=== PATIENT | male | born 1970 | race Caucasian/White ===

== ENCOUNTER → 2017-01-11 | Outpatient (CLI) | payer BC, OTHER ==
[2017-01-11 08:42] LABS: CHLORIDE,CL 107 mmol/L (98-110); SODIUM,NA 144 mmol/L (136-146)
== END ==
LOC: MW.CHFP 07:35
PROVIDERS: ATTEND Student in an Organized Health Care Education/Training Program
DX: E11.65 Type 2 diabetes mellitus with hyperglycemia (principal); E78.00 Pure hypercholesterolemia, unspecified; E78.5 Hyperlipidemia, unspecified
CPT/HCPCS: 36415; 80053; 80061; 82044; 83036

== ENCOUNTER 2023-09-03 12:29 | Emergency (ER) | payer OTHER ==
[2023-09-03] MEDS ORDERED: Diphtheria,Pertussis(Acell),Tetanus Vaccine 0.5 ML Syringe IM ONE (12:57)
[2023-09-03] MEDS ORDERED: Amoxicillin/Clavulanate K 875-125 MG Tab PO ONE (12:57)
[2023-09-03 13:58] VITALS: BP 117/66; PULSE 84
== END 2023-09-03 13:58 | disposition home or self-care (01) ==
LOC: MW.ED 12:29
DX: S61.451A Open bite of right hand, initial encounter (principal); E11.9 Type 2 diabetes mellitus without complications; Z91.018 Allergy to other foods; Z79.84 Long term (current) use of oral hypoglycemic drugs; Z23 Encounter for immunization; W55.01XA Bitten by cat, initial encounter
CPT/HCPCS: 90471; 90715; 99283; A9270

== ENCOUNTER 2024-01-19 19:01 | Inpatient (IN) | payer SELFPAY ==
[2024-01-19] MEDS: Sodium Chloride 0.9% 1,000 ML IV ONE ×2 (19:18→19:59)
[2024-01-19] MEDS: Ondansetron 4 MG/2 ML SDV IVPUSH ONE (19:18)
[2024-01-19 19:22] LABS: BASOPHILS ABSOLUTE AUTO 0.04 K/uL (0.00-0.20); BASOPHILS PERCENT AUTO 0.3 % (0.0-1.0); EOSINOPHILS ABSOLUTE AUTO 0.03 K/uL (0.00-0.45); EOSINOPHILS PERCENT AUTO 0.2 % (0.0-6.0); HEMATOCRIT 56.3 % (42.0-52.0); HEMOGLOBIN 18.7 g/dL (14.0-18.0); IMMATURE GRAN ABSOLUTE AUTO 0.08 K/uL (0.00-0.05); IMMATURE GRAN PERCENT AUTO 0.6 % (0.0-0.4); LYMPHOCYTES ABSOLUTE AUTO 2.08 K/uL (1.00-4.80); LYMPHOCYTES PERCENT AUTO 14.8 % (24.0-44.0); MEAN CORPUSCULAR HEMOGLOBIN 31.1 pg (28.0-32.0); MEAN CORPUSCULAR HGB CONC 33.2 g/dL (32.0-36.0); MEAN CORPUSCULAR VOLUME 93.5 fL (83.0-99.0); MEAN PLATELET VOLUME 10.2 fL (9.4-12.4); MONOCYTES ABSOLUTE AUTO 0.91 K/uL (0.00-0.80); MONOCYTES PERCENT AUTO 6.5 % (0.0-8.0); NEUTROPHILS ABSOLUTE AUTO 10.95 K/uL (1.80-7.70); NEUTROPHILS PERCENT AUTO 77.6 % (41.0-71.0); PLATELET COUNT,PLT 301 K/uL (150-400); RED BLOOD CELL COUNT 6.02 M/uL (4.52-5.90); WHITE BLOOD CELL COUNT,WBC 14.09 K/uL (3.9-11.3)
[2024-01-19 19:49] LABS: A/G RATIO 1.2 (0.9-1.6); ALBUMIN 4.9 g/dL (3.4-5.0); BILIRUBIN TOTAL 0.7 mg/dL (0.2-1.0); CREATININE 1.6 mg/dL (0.8-1.3); EST CRCL DRUG DOSING (CG) 54.5 mL/min; MAGNESIUM 2.1 mg/dL (1.8-2.4); POTASSIUM,K 4.9 mmol/L (3.5-5.1)
[2024-01-19 20:23] LABS: BASE EXCESS VENOUS -15.8 (-2.0-3.0); BICARBONATE,VENOUS 12 mEQ/mL (22-28); PCO2 VENOUS 36 mmHG (41-51); PH,VENOUS 7.14 (7.31-7.41)
[2024-01-19 20:27] LABS: PO2 VENOUS < 30 mmHG (80-100)
[2024-01-19 20:54] LABS: LACTIC ACID 1.4 mmol/L (0.4-2.0)
[2024-01-19] MEDS: Dextrose 5%-0.45% NaCl 1,000 ML IV SCH (21:15)
[2024-01-19 21:16] LABS: COLOR,URINE YELLOW; GLUCOSE,URINE 500 mg/dL (NEGATIVE); KETONES,URINE >=80 mg/dL (NEGATIVE); LEUKOCYTE ESTERASE,URINE NEGATIVE (NEGATIVE); NITRITE,URINE NEGATIVE (NEGATIVE); OCCULT BLOOD,URINE TRACE-INTACT (NEGATIVE); PH,URINE 5.5 (5.0-8.0); PROTEIN,URINE NEGATIVE (NEGATIVE); UROBILINOGEN,URINE 0.2 EU/dL (<2.0)
[2024-01-19] MEDS: Insulin Regular in 0.9 % NACL 100 ML IV SCH (21:21)
[2024-01-19 21:23] LABS: APPEARANCE,URINE HAZY; BILIRUBIN,URINE SMALL (NEGATIVE)
[2024-01-19] MEDS ORDERED: Ondansetron 4 MG/2 ML SDV IVPUSH PRN (21:26)
[2024-01-19] MEDS ORDERED: Melatonin 3 MG Tab PO PRN (21:26)
[2024-01-19] MEDS ORDERED: Acetaminophen 650 MG Supp RECTAL PRN (21:26)
[2024-01-19 21:49] LABS: BACTERIA,URINE FEW (NEGATIVE); HYALINE CASTS,URINE 0-1 (0-2/LPF); MUCUS,URINE NOT SEEN (NONE-MOD); SQUAMOUS EPITHELIAL CELLS,UR FEW; WBC,URINE 0-1 (0-5/HPF)
[2024-01-19 22:06] LABS: HEMOGLOBIN A1C 9.2 %
[2024-01-19] MEDS: Enoxaparin 40 MG/0.4 ML Syringe SUBCUT SCH (22:37)
[2024-01-19] MEDS: Acetaminophen 325 MG Tab PO PRN (22:58)
[2024-01-19 23:20] LABS: CALCIUM 8.8 mg/dL (8.5-10.1); CARBON DIOXIDE,CO2 13.3 mmol/L (21.0-32.0); CREATININE 1.4 mg/dL (0.8-1.3); EST CRCL DRUG DOSING (CG) 62.28 mL/min; POTASSIUM,K 4.9 mmol/L (3.5-5.1)
[2024-01-19] MEDS: Celecoxib 100 MG Cap PO SCH (23:35)
[2024-01-19 23:43] LABS: CORONAVIRUS COVID-19 NAA NEGATIVE (NEGATIVE); INFLUENZA A NAA NEGATIVE (NEGATIVE); INFLUENZA B NAA NEGATIVE (NEGATIVE); RESPIRATORY SYNCYTIAL VIR NAA NEGATIVE (NEGATIVE)
[2024-01-20] MEDS: Metoclopramide 10 MG/2 ML SDV IVPUSH PRN (01:05)
[2024-01-20 03:41] LABS: BASOPHILS ABSOLUTE AUTO 0.03 K/uL (0.00-0.20); BASOPHILS PERCENT AUTO 0.2 % (0.0-1.0); EOSINOPHILS ABSOLUTE AUTO 0.03 K/uL (0.00-0.45); EOSINOPHILS PERCENT AUTO 0.2 % (0.0-6.0); HEMATOCRIT 49.5 % (42.0-52.0); HEMOGLOBIN 16.9 g/dL (14.0-18.0); IMMATURE GRAN ABSOLUTE AUTO 0.06 K/uL (0.00-0.05); IMMATURE GRAN PERCENT AUTO 0.5 % (0.0-0.4); LYMPHOCYTES ABSOLUTE AUTO 2.94 K/uL (1.00-4.80); MEAN CORPUSCULAR HEMOGLOBIN 31.4 pg (28.0-32.0); MEAN CORPUSCULAR HGB CONC 34.1 g/dL (32.0-36.0); MEAN CORPUSCULAR VOLUME 91.8 fL (83.0-99.0); MEAN PLATELET VOLUME 9.9 fL (9.4-12.4); MONOCYTES ABSOLUTE AUTO 1.28 K/uL (0.00-0.80); MONOCYTES PERCENT AUTO 10.4 % (0.0-8.0); NEUTROPHILS ABSOLUTE AUTO 7.93 K/uL (1.80-7.70); NEUTROPHILS PERCENT AUTO 64.7 % (41.0-71.0); PLATELET COUNT,PLT 236 K/uL (150-400); RED BLOOD CELL COUNT 5.39 M/uL (4.52-5.90); WHITE BLOOD CELL COUNT,WBC 12.27 K/uL (3.9-11.3)
[2024-01-20 03:59] LABS: CALCIUM 8.8 mg/dL (8.5-10.1); CARBON DIOXIDE,CO2 16.4 mmol/L (21.0-32.0); CREATININE 1.4 mg/dL (0.8-1.3); EST CRCL DRUG DOSING (CG) 62.28 mL/min; POTASSIUM,K 4.4 mmol/L (3.5-5.1)
[2024-01-20 04:02] LABS: PHOSPHORUS 3.1 mg/dL (2.6-4.7)
[2024-01-20] MEDS: Dextrose 5%-0.45% NaCl 1,000 ML IV SCH (04:03)
[2024-01-20 08:19] LABS: CALCIUM 8.6 mg/dL (8.5-10.1); CARBON DIOXIDE,CO2 20.7 mmol/L (21.0-32.0); CREATININE 1.4 mg/dL (0.8-1.3); EST CRCL DRUG DOSING (CG) 62.28 mL/min; POTASSIUM,K 4.1 mmol/L (3.5-5.1)
[2024-01-20] MEDS ORDERED: Celecoxib 100 MG Cap PO SCH (09:00)
[2024-01-20] MEDS: Ondansetron 4 MG/2 ML SDV IVPUSH PRN (09:13)
[2024-01-20] MEDS ORDERED: 50% Dextrose in Water 50 ML Syringe IVPUSH PRN (11:10)
[2024-01-20] MEDS ORDERED: Glucagon,Human Recombinant 1 MG Vial IM PRN (11:10)
[2024-01-20] MEDS: Insulin Aspart 100 Units/ML 3 ML Pen SUBCUT SCH (11:36)
[2024-01-20] MEDS: Nicotine 21 MG/24 Hr Patch TRDERM ONE (11:39)
[2024-01-20] MEDS: Prochlorperazine 10 MG/2 ML SDV IVPUSH ONE (11:39)
[2024-01-20 11:58] LABS: CALCIUM 8.8 mg/dL (8.5-10.1); CARBON DIOXIDE,CO2 22.2 mmol/L (21.0-32.0); CREATININE 1.2 mg/dL (0.8-1.3); EST CRCL DRUG DOSING (CG) 72.66 mL/min; POTASSIUM,K 4.4 mmol/L (3.5-5.1)
[2024-01-20 17:11] VITALS: BP 100/57; PULSE 79
== END 2024-01-20 17:35 | disposition home or self-care (01) | DRG 638 ==
LOC: MW.ED 19:01 → MW.ICU 20:41
PROVIDERS: ADMIT Family Medicine; ATTEND Family Medicine
DX: E11.10 Type 2 diabetes mellitus with ketoacidosis without coma (principal); N17.9 Acute kidney failure, unspecified; F17.210 Nicotine dependence, cigarettes, uncomplicated; R74.8 Abnormal levels of other serum enzymes; Z91.018 Allergy to other foods; Z79.84 Long term (current) use of oral hypoglycemic drugs; Z79.899 Other long term (current) drug therapy; Z79.2 Long term (current) use of antibiotics
CPT/HCPCS: 0241U; 36415; 80048; 80053; 81001; 82009; 82803; 82947; 83036; 83605; 83690; 83735; 84100; 85025; 87040; 93005; 93010; 96361; 96374; 99285; 99285-25; A9270-GY; J0780; J1650; J1815; J2405; J2765; J7030; J7042

== ENCOUNTER 2024-05-19 12:58 | Emergency (ER) | payer BC ==
[2024-05-19] MEDS: Acetaminophen/HYDROcodone 325-5 MG Tab PO ONE (13:47)
[2024-05-19 14:03] LABS: BASOPHILS ABSOLUTE AUTO 0.05 K/uL (0.00-0.20); BASOPHILS PERCENT AUTO 0.3 % (0.0-1.0); EOSINOPHILS ABSOLUTE AUTO 0.12 K/uL (0.00-0.45); EOSINOPHILS PERCENT AUTO 0.8 % (0.0-6.0); HEMATOCRIT 41.7 % (42.0-52.0); HEMOGLOBIN 13.7 g/dL (14.0-18.0); IMMATURE GRAN ABSOLUTE AUTO 0.07 K/uL (0.00-0.05); IMMATURE GRAN PERCENT AUTO 0.4 % (0.0-0.4); LYMPHOCYTES ABSOLUTE AUTO 1.57 K/uL (1.00-4.80); MEAN CORPUSCULAR HEMOGLOBIN 30.4 pg (28.0-32.0); MEAN CORPUSCULAR HGB CONC 32.9 g/dL (32.0-36.0); MEAN CORPUSCULAR VOLUME 92.5 fL (83.0-99.0); MEAN PLATELET VOLUME 9.8 fL (9.4-12.4); MONOCYTES ABSOLUTE AUTO 1.33 K/uL (0.00-0.80); MONOCYTES PERCENT AUTO 8.4 % (0.0-8.0); NEUTROPHILS ABSOLUTE AUTO 12.63 K/uL (1.80-7.70); NEUTROPHILS PERCENT AUTO 80.1 % (41.0-71.0); PLATELET COUNT,PLT 245 K/uL (150-400); RED BLOOD CELL COUNT 4.51 M/uL (4.52-5.90); WHITE BLOOD CELL COUNT,WBC 15.77 K/uL (3.9-11.3)
[2024-05-19 14:17] LABS: A/G RATIO 0.8 (0.9-1.6); ALBUMIN 3.6 g/dL (3.4-5.0); BILIRUBIN TOTAL 0.6 mg/dL (0.2-1.0); CALCIUM 9.8 mg/dL (8.5-10.1); CARBON DIOXIDE,CO2 20.5 mmol/L (21.0-32.0); CREATININE 0.9 mg/dL (0.8-1.3); EST CRCL DRUG DOSING (CG) 95.76 mL/min; POTASSIUM,K 4.1 mmol/L (3.5-5.1)
[2024-05-19 14:42] LABS: APPEARANCE,URINE CLEAR; BILIRUBIN,URINE NEGATIVE (NEGATIVE); COLOR,URINE YELLOW; GLUCOSE,URINE 500 mg/dL (NEGATIVE); KETONES,URINE >=80 mg/dL (NEGATIVE); LEUKOCYTE ESTERASE,URINE NEGATIVE (NEGATIVE); NITRITE,URINE NEGATIVE (NEGATIVE); OCCULT BLOOD,URINE NEGATIVE (NEGATIVE); PH,URINE 5.5 (5.0-8.0); PROTEIN,URINE NEGATIVE (NEGATIVE); UROBILINOGEN,URINE 0.2 EU/dL (<2.0)
[2024-05-19 15:11] LABS: C. TRACHOMATIS BY PCR NOT DETECTED; N. GONORRHOEAE BY PCR NOT DETECTED
[2024-05-19] MEDS: Doxycycline 100 MG Cap PO ONE (16:02)
[2024-05-19] MEDS: cefTRIAXone 1 GM in Sodium Chloride 0.9% 50 ML IV ONE (16:03)
[2024-05-19] MEDS: Amoxicillin/Clavulanate K 875-125 MG Tab PO ONE (16:30)
[2024-05-19 16:56] VITALS: BP 114/71; PULSE 100
== END 2024-05-19 16:40 | disposition home or self-care (01) ==
LOC: MW.ED 12:58
DX: N45.1 Epididymitis (principal); I10 Essential (primary) hypertension; E11.9 Type 2 diabetes mellitus without complications; Z79.899 Other long term (current) drug therapy; Z79.84 Long term (current) use of oral hypoglycemic drugs; Z91.018 Allergy to other foods
CPT/HCPCS: 36415; 76870; 80053; 81003; 85025; 87491; 87591; 93976; 96365; 99284; A9270; J0696; J3490

== ENCOUNTER 2024-05-22 10:40 | Emergency (ER) | payer BC ==
[2024-05-22] MEDS: Sodium Chloride 0.9% 1,000 ML IV ONE ×2 (11:19→13:35)
[2024-05-22] MEDS: Ondansetron 4 MG/2 ML SDV IVPUSH ONE ×2 (11:20→13:46)
[2024-05-22] MEDS: Ketorolac 30 MG/ML SDV IVPUSH ONE (11:20)
[2024-05-22 11:32] LABS: BASOPHILS ABSOLUTE AUTO 0.05 K/uL (0.00-0.20); BASOPHILS PERCENT AUTO 0.4 % (0.0-1.0); EOSINOPHILS ABSOLUTE AUTO 0.16 K/uL (0.00-0.45); EOSINOPHILS PERCENT AUTO 1.1 % (0.0-6.0); HEMATOCRIT 44.5 % (42.0-52.0); HEMOGLOBIN 14.5 g/dL (14.0-18.0); IMMATURE GRAN ABSOLUTE AUTO 0.15 K/uL (0.00-0.05); IMMATURE GRAN PERCENT AUTO 1.1 % (0.0-0.4); LYMPHOCYTES ABSOLUTE AUTO 1.32 K/uL (1.00-4.80); LYMPHOCYTES PERCENT AUTO 9.4 % (24.0-44.0); MEAN CORPUSCULAR HEMOGLOBIN 30.1 pg (28.0-32.0); MEAN CORPUSCULAR HGB CONC 32.6 g/dL (32.0-36.0); MEAN CORPUSCULAR VOLUME 92.5 fL (83.0-99.0); MEAN PLATELET VOLUME 9.7 fL (9.4-12.4); MONOCYTES ABSOLUTE AUTO 0.72 K/uL (0.00-0.80); MONOCYTES PERCENT AUTO 5.2 % (0.0-8.0); NEUTROPHILS ABSOLUTE AUTO 11.57 K/uL (1.80-7.70); NEUTROPHILS PERCENT AUTO 82.8 % (41.0-71.0); PLATELET COUNT,PLT 299 K/uL (150-400); RED BLOOD CELL COUNT 4.81 M/uL (4.52-5.90); WHITE BLOOD CELL COUNT,WBC 13.97 K/uL (3.9-11.3)
[2024-05-22 11:57] LABS: A/G RATIO 0.7 (0.9-1.6); ALBUMIN 3.1 g/dL (3.4-5.0); BILIRUBIN TOTAL 0.6 mg/dL (0.2-1.0); CALCIUM 10.4 mg/dL (8.5-10.1); CARBON DIOXIDE,CO2 15.5 mmol/L (21.0-32.0); CREATININE 1.3 mg/dL (0.8-1.3); EST CRCL DRUG DOSING (CG) 64.2 mL/min; LACTIC ACID 0.9 mmol/L (0.4-2.0); MAGNESIUM 1.9 mg/dL (1.8-2.4); POTASSIUM,K 4.1 mmol/L (3.5-5.1); PROTEIN TOTAL,TP 7.8 g/dL (6.4-8.2)
[2024-05-22 12:29] LABS: APPEARANCE,URINE CLEAR; COLOR,URINE YELLOW; GLUCOSE,URINE 500 mg/dL (NEGATIVE); KETONES,URINE >=80 mg/dL (NEGATIVE); LEUKOCYTE ESTERASE,URINE NEGATIVE (NEGATIVE); NITRITE,URINE NEGATIVE (NEGATIVE); OCCULT BLOOD,URINE TRACE-INTACT (NEGATIVE); PROTEIN,URINE NEGATIVE (NEGATIVE); UROBILINOGEN,URINE 0.2 EU/dL (<2.0)
[2024-05-22 12:35] LABS: BILIRUBIN,URINE SMALL (NEGATIVE)
[2024-05-22 12:40] LABS: WBC,URINE 0-2 (0-5/HPF)
[2024-05-22 12:41] LABS: BACTERIA,URINE NOT SEEN (NEGATIVE); EPITHELIAL CELLS,URINE OCCASIONAL (NONE-FEW); RBC,URINE 0-2 (0-2/HPF)
[2024-05-22] MEDS: VANCOmycin 1.5 GM/300 ML 1.5 GM in Premix Bag 1 BAG IV ONE (13:35)
[2024-05-22] MEDS: Morphine 4 MG/ML Syringe IVPUSH ONE (16:18)
[2024-05-22 16:52] VITALS: BP 103/69; PULSE 89
== END 2024-05-22 16:51 | disposition home or self-care (01) ==
LOC: MW.ED 10:40
DX: R11.2 Nausea with vomiting, unspecified (principal); I10 Essential (primary) hypertension; E11.9 Type 2 diabetes mellitus without complications; E78.00 Pure hypercholesterolemia, unspecified; Z79.84 Long term (current) use of oral hypoglycemic drugs; Z79.899 Other long term (current) drug therapy; Z91.018 Allergy to other foods; Z75.8 Other problems related to medical facilities and other health care
CPT/HCPCS: 36415; 80053; 81001; 82947; 83605; 83690; 83735; 84484; 85025; 87040; 93005; 96361; 96365; 96375; 96376; 99284; J1885; J2270; J2405; J3372; J7030; 93010

== ENCOUNTER 2024-05-24 18:08 | Emergency (ER) | payer BC ==
[2024-05-24 18:56] VITALS: BP 134/80; PULSE 86
[2024-05-24] MEDS: Sodium Chloride 0.9% 2.5 ML Syringe FLUSH PRN (20:09)
[2024-05-24] MEDS: Sodium Chloride 0.9% 1,000 ML IV ONE (20:09)
[2024-05-24] MEDS: Sodium Chloride 0.9% 10 ML Syringe FLUSH PRN (20:10)
[2024-05-24] MEDS: Ondansetron 4 MG/2 ML SDV IVPUSH ONE (20:10)
[2024-05-24 20:15] LABS: BASOPHILS ABSOLUTE AUTO 0.08 K/uL (0.00-0.20); BASOPHILS PERCENT AUTO 0.7 % (0.0-1.0); EOSINOPHILS ABSOLUTE AUTO 0.16 K/uL (0.00-0.45); EOSINOPHILS PERCENT AUTO 1.3 % (0.0-6.0); HEMATOCRIT 45.3 % (42.0-52.0); HEMOGLOBIN 15.1 g/dL (14.0-18.0); IMMATURE GRAN ABSOLUTE AUTO 0.17 K/uL (0.00-0.05); IMMATURE GRAN PERCENT AUTO 1.4 % (0.0-0.4); LYMPHOCYTES ABSOLUTE AUTO 2.04 K/uL (1.00-4.80); MEAN CORPUSCULAR HEMOGLOBIN 30.4 pg (28.0-32.0); MEAN CORPUSCULAR HGB CONC 33.3 g/dL (32.0-36.0); MEAN CORPUSCULAR VOLUME 91.1 fL (83.0-99.0); MEAN PLATELET VOLUME 9.4 fL (9.4-12.4); MONOCYTES ABSOLUTE AUTO 0.99 K/uL (0.00-0.80); MONOCYTES PERCENT AUTO 8.2 % (0.0-8.0); NEUTROPHILS ABSOLUTE AUTO 8.59 K/uL (1.80-7.70); NEUTROPHILS PERCENT AUTO 71.4 % (41.0-71.0); PLATELET COUNT,PLT 291 K/uL (150-400); RED BLOOD CELL COUNT 4.97 M/uL (4.52-5.90); WHITE BLOOD CELL COUNT,WBC 12.03 K/uL (3.9-11.3)
[2024-05-24 20:50] LABS: A/G RATIO 0.7 (0.9-1.6); ALBUMIN 3.2 g/dL (3.4-5.0); BILIRUBIN TOTAL 0.5 mg/dL (0.2-1.0); CALCIUM 10.1 mg/dL (8.5-10.1); CARBON DIOXIDE,CO2 15.2 mmol/L (21.0-32.0); CREATININE 1.4 mg/dL (0.8-1.3); EST CRCL DRUG DOSING (CG) 59.62 mL/min; POTASSIUM,K 4.6 mmol/L (3.5-5.1); PROTEIN TOTAL,TP 7.8 g/dL (6.4-8.2)
[2024-05-24] MEDS: Iopamidol 755 MG/ML 500 ML Multipack Bottle IVPUSH ONE (21:20)
[2024-05-24] MEDS: Cefepime 2 GM in Sodium Chloride 0.9% 50 ML IV ONE (22:34)
[2024-05-25] MEDS: HYDROmorphone 0.5 MG/0.5 ML Syringe IVPUSH ONE (01:06)
[2024-05-25] MEDS: Ondansetron 4 MG/2 ML SDV IVPUSH ONE (01:06)
== END 2024-05-25 01:20 | disposition other institution (70) ==
LOC: MW.ED 18:08
DX: N12 Tubulo-interstitial nephritis, not specified as acute or chronic (principal); N15.1 Renal and perinephric abscess; N45.4 Abscess of epididymis or testis; N41.2 Abscess of prostate; I10 Essential (primary) hypertension; E11.9 Type 2 diabetes mellitus without complications; Z79.84 Long term (current) use of oral hypoglycemic drugs; Z79.899 Other long term (current) drug therapy; Z91.018 Allergy to other foods
CPT/HCPCS: 36415; 74177; 80053; 82947; 83605; 83690; 85025; 87040; 96361; 96365; 96366; 96367; 96375; 96376; 99285; J0692; J1170; J2405; J3370; J3490; J7030; J7050; Q9967